=== PATIENT | male | born 1985 | race Caucasian/White ===

== ENCOUNTER 2020-06-08 21:24 | Emergency (ER) | payer BC, MEDICAID, OTHER ==
[2020-06-08] MEDS ORDERED: Ondansetron 4 MG/2 ML SDV IVPUSH ONE (21:41)
[2020-06-08] MEDS ORDERED: Sodium Chloride 0.9% 1,000 ML IV ONE ×2 (21:41→23:05)
[2020-06-08] MEDS ORDERED: Insulin Regular, Human 100 Units/ML 3 ML Vial SUBCUT ONE (21:51)
[2020-06-08 21:56] LABS: CHLORIDE,CL 87 mmol/L (98-107); SODIUM,NA 126 mmol/L (136-145)
[2020-06-08] MEDS ORDERED: Ketorolac 30 MG/ML SDV IVPUSH ONE (21:57)
[2020-06-08] MEDS ORDERED: Insulin Regular, Human 100 Units/ML 3 ML Vial IV ONE (22:57)
--- NOTE | 2020-06-08 23:10 | EDM.PDOC ---
ED HPI GENERAL MEDICAL PROBLEM - General Chief Complaint: Diabetic Complaint Stated Complaint: High BS, R flank Pain, BLE weakness Time Seen by Provider: 06/08/20 21:30 Source of Information: Reports: Patient History Limitations: Reports: No Limitations - History of Present Illness INITIAL COMMENTS - FREE TEXT/NARRATIVE: Pt presents via EMS with elevated glucose Pt is Type 1 diabetic Some mild flank pain Feels shaky No recent illness No fever Some nausea and emesis Onset: Today, Gradual Duration: Getting Worse Location: Reports: Generalized Right Flank Pain Score (Numeric/FACES): 7 - Related Data Allergies Allergy/AdvReac Type Severity Reaction Status Date / Time No Known Allergies Allergy Verified 06/08/20 21:27 Home Meds: Home Meds Insulin Aspart [NovoLOG] See Protocol SUBCUT TIDAC #1 box 11/07/17 [Rx] Insulin Glarg,Human.Rec.Analog [LantUS Solostar] 25 units SUBCUT QAM 02/14/18 [History] Insulin Aspart [NovoLOG] See Protocol SQ WITHMEALSANDBED #2 pen 12/29/19 [Rx] Insulin Glarg,Human.Rec.Analog [Lantus Solostar] 25 unit SUBCUT DAILY #2 pen 12/29/19 [Rx] Past Medical History - Past Health History Medical/Surgical History: Denies Medical/Surgical History HEENT History: Reports: None Cardiovascular History: Reports: None Respiratory History: Reports: Asthma Other Respiratory History: asthma as a child Gastrointestinal History: Reports: Pancreatitis Genitourinary History: Reports: None Musculoskeletal History: Reports: Back Pain, Chronic, Other (See Below) Other Musculoskeletal History: had a sport accident when he was on early Neurological History: Reports: None Psychiatric History: Reports: None Endocrine/Metabolic History: Reports: Diabetes, Type I 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 Hematologic History: Reports: None Immunologic History: Reports: None Oncologic (Cancer) History: Reports: None Dermatologic History: Reports: None - Infectious Disease History Infectious Disease History: Reports: Chicken Pox - Past Surgical History Head Surgeries/Procedures: Reports: None Respiratory Surgical History: Reports: None GI Surgical History: Reports: Appendectomy Endocrine Surgical History: Reports: None Social & Family History - Family History Family Medical History: Noncontributory - Tobacco Use Smoking Status *Q: Light Tobacco Smoker Years of Tobacco use: 20 Packs/Tins Daily: 0.1 Second Hand Smoke Exposure: Yes - Caffeine Use Caffeine Use: Reports: Energy Drinks Other Caffeine Use: multiple drinks daily Caffeine Use Comment: @L soda a week - Recreational Drug Use Recreational Drug Use: No - Living Situation & Occupation Occupation: Employed ED ROS GENERAL - Review of Systems Review Of Systems: See Below Constitutional: Reports: Malaise, Weakness, Fatigue, Decreased Appetite Respiratory: Reports: No Symptoms Cardiovascular: Reports: No Symptoms GI/Abdominal: Reports: Abdominal Pain, Nausea, Vomiting : Reports: Flank Pain Musculoskeletal: Reports: No Symptoms Skin: Reports: No Symptoms Neurological: Reports: No Symptoms ED EXAM GENERAL NO PERIP PULSE - Physical Exam Exam: See Below Exam Limited By: No Limitations General Appearance: Mild Distress Throat/Mouth: Normal Oropharynx Neck: Supple Respiratory/Chest: Lungs Clear Cardiovascular: Regular Rate, Rhythm GI/Abdominal: Soft, Tender Back Exam: CVA Tenderness (L), CVA Tenderness (R) Extremities: No Pedal Edema Neurological: Alert, Oriented, No Motor/Sensory Deficits Psychiatric: Normal Affect, Normal Mood Course - Vital Signs Last Recorded V/S: Last Vital Signs Temp 98.8 F 06/08/20 21:41 Pulse 92 06/08/20 22:55 Resp 20 06/08/20 22:55 BP 120/74 06/08/20 22:55 Pulse Ox 100 06/08/20 22:55 - Orders/Labs/Meds Orders: Active Orders 24 hr Category Date Time Status Sodium Chloride 0.9% [Normal Saline] 1,000 ml Med 06/08/20 23:05 Ordered IV .BOLUS Labs: Laboratory Tests 06/08/20 06/08/20 06/08/20 Range/Units 21:38 21:38 22:10 WBC 12.5 H (4.0-10.2) K/uL RBC 5.32 (4.33-5.41) M/uL Hgb 17.5 H (13.1-16.8) g/dL Hct 46.9 (39.0-49.0) % MCV 88.2 (84.0-98.0) fL MCH 32.9 (28.2-33.3) pg MCHC 37.3 H (31.7-36.0) g/dL RDW 12.5 (11.2-14.1) % Plt Count 219 (150-350) K/uL Neut % (Auto) 71.7 (45.0-80.0) % Lymph % (Auto) 20.9 (10.0-50.0) % Drew % (Auto) 4.8 (2.0-14.0) % Eos % (Auto) 1.0 (0.0-5.0) % Baso % (Auto) 1.6 (0.0-2.0) % Neut # (Auto) 8.99 H (1.40-7.00) K/uL Lymph # (Auto) 2.62 (0.50-3.50) K/uL Drew # (Auto) 0.60 (0.00-1.00) K/uL Eos # (Auto) 0.13 (0.00-0.50) K/uL Baso # (Auto) 0.20 (0.00-0.20) K/uL Sodium 126 L (136-145) mmol/L Potassium 5.3 H (3.5-5.1) mmol/L Chloride 87 L (98-107) mmol/L Carbon Dioxide 10.1 L (21.0-32.0) mmol/L BUN 19 H (7-18) mg/dL Creatinine 0.89 (0.51-1.17) mg/dL Est Cr Clr Drug Dosing 102.25 mL/min Estimated GFR (MDRD) > 60 mL/min Glucose 448 H* (74-106) mg/dL POC Glucose (65-110) mg/dl Calcium 9.8 (8.5-10.1) mg/dL Total Bilirubin 1.4 H (0.2-1.0) mg/dL AST 37 (15-37) U/L ALT 46 (12-78) U/L Alkaline Phosphatase 130 H (46-116) IU/L Total Protein 7.5 (6.4-8.2) g/dL Albumin 4.6 (3.4-5.0) g/dL Specimen Type Urincc Urine Color Light yellow Urine Appearance Clear Urine pH 5.0 (5.0-9.0) Ur Specific [place] 1.020 (1.005-1.030) Urine Protein Negative (NEGATIVE) mg/dL Urine Glucose (UA) 500 H (NEGATIVE) mg/dL Urine Ketones >=160 H (NEGATIVE) mg/dL Urine Occult Blood Negative (NEGATIVE) Urine Nitrite Negative (NEGATIVE) Urine Bilirubin Negative (NEGATIVE) Urine Urobilinogen 0.2 (0.2-1.0) E.U./dL Ur Leukocyte Esterase Negative (NEGATIVE) 06/08/20 Range/Units 22:53 WBC (4.0-10.2) K/uL RBC (4.33-5.41) M/uL Hgb (13.1-16.8) g/dL Hct (39.0-49.0) % MCV (84.0-98.0) fL MCH (28.2-33.3) pg MCHC (31.7-36.0) g/dL RDW (11.2-14.1) % Plt Count (150-350) K/uL Neut % (Auto) (45.0-80.0) % Lymph % (Auto) (10.0-50.0) % Drew % (Auto) (2.0-14.0) % Eos % (Auto) (0.0-5.0) % Baso % (Auto) (0.0-2.0) % Neut # (Auto) (1.40-7.00) K/uL Lymph # (Auto) (0.50-3.50) K/uL Drew # (Auto) (0.00-1.00) K/uL Eos # (Auto) (0.00-0.50) K/uL Baso # (Auto) (0.00-0.20) K/uL Sodium (136-145) mmol/L Potassium (3.5-5.1) mmol/L Chloride (98-107) mmol/L Carbon Dioxide (21.0-32.0) mmol/L BUN (7-18) mg/dL Creatinine (0.51-1.17) mg/dL Est Cr Clr Drug Dosing mL/min Estimated GFR (MDRD) mL/min Glucose (74-106) mg/dL POC Glucose 445 H* (65-110) mg/dl Calcium (8.5-10.1) mg/dL Total Bilirubin (0.2-1.0) mg/dL AST (15-37) U/L ALT (12-78) U/L Alkaline Phosphatase (46-116) IU/L Total Protein (6.4-8.2) g/dL Albumin (3.4-5.0) g/dL Specimen Type Urine Color Urine Appearance Urine pH (5.0-9.0) Ur Specific [place] (1.005-1.030) Urine Protein (NEGATIVE) mg/dL Urine Glucose (UA) (NEGATIVE) mg/dL Urine Ketones (NEGATIVE) mg/dL Urine Occult Blood (NEGATIVE) Urine Nitrite (NEGATIVE) Urine Bilirubin (NEGATIVE) Urine Urobilinogen (0.2-1.0) E.U./dL Ur Leukocyte Esterase (NEGATIVE) Meds: Medications Discontinued Medications Generic Name Dose Route Start Last Admin Trade Name Freq PRN Reason Stop Dose Admin Sodium Chloride 1,000 mls @ 1,000 mls/hr 06/08/20 21:41 06/08/20 21:47 Normal Saline IV 06/08/20 22:40 1,000 mls/hr .BOLUS ONE Administration Insulin Human Regular 18 unit 06/08/20 21:51 06/08/20 21:56 Humulin R SUBCUT 06/08/20 21:52 18 units ONETIME ONE Administration Insulin Human Regular 5 unit 06/08/20 22:57 Humulin R IV 06/08/20 22:58 ONETIME ONE Ketorolac Tromethamine 30 mg 06/08/20 21:57 06/08/20 21:59 Toradol IVPUSH 06/08/20 21:58 30 mg ONETIME ONE Administration Ondansetron HCl 4 mg 06/08/20 21:41 06/08/20 21:47 Zofran IVPUSH 06/08/20 21:42 4 mg ONETIME ONE Administration - Re-Assessments/Exams Free Text/Narrative Re-Assessment/Exam: 06/08/20 23:08 See lab Pt given IVF, IV Zofran Regular insulin SQ and Regular insulin IV in E R Improved symptoms Departure - Departure Time of Disposition: 01:00 Disposition: Home, Self-Care 01 Clinical Impression: Hyperglycemia, Hyperglycemia due to type 1 diabetes mellitus - Discharge Information *PRESCRIPTION DRUG MONITORING PROGRAM REVIEWED*: Not Applicable *COPY OF PRESCRIPTION DRUG MONITORING REPORT IN PATIENT TASHA: Not Applicable Instructions: Hyperglycemia, [id number] Referrals: PCP,None [Primary Care Provider] - Additional Instructions: Follow up in clinic Sepsis Event Note (ED) - Evaluation Sepsis Screening Result: No Definite Risk - Focused Exam Vital Signs: Vital Signs Temp Pulse Resp BP Pulse Ox 06/08/20 22:55 92 20 120/74 100 06/08/20 21:41 98.8 F 120 H 20 131/84 100 - My Orders Last 24 Hours: My Active Orders 06/08/20 23:05 Sodium Chloride 0.9% [Normal Saline] 1,000 ml IV .BOLUS - Assessment/Plan Last 24 Hours: My Active Orders 06/08/20 23:05 Sodium Chloride 0.9% [Normal Saline] 1,000 ml IV .BOLUS
[2020-06-09] MEDS ORDERED: Insulin Regular, Human 100 Units/ML 3 ML Vial SUBCUT ONE (21:48)
== END 2020-06-09 00:15 | disposition home or self-care (01) ==
LOC: LL.ED 21:24
DX: E10.65 Type 1 diabetes mellitus with hyperglycemia (principal); R11.2 Nausea with vomiting, unspecified; F17.210 Nicotine dependence, cigarettes, uncomplicated
CPT/HCPCS: 36415; 80053; 81003; 82962; 85025; 96361; 96374; 96375; 99284; J1815; J1885; J2405; J7030

== ENCOUNTER 2021-11-24 03:59 | Emergency (ER) | payer BC ==
[2021-11-24] MEDS ORDERED: Sodium Chloride 0.9% 1,000 ML IV ONE (04:24)
[2021-11-24] MEDS ORDERED: Sodium Chloride 0.9% 10 ML Syringe FLUSH PRN (04:24)
[2021-11-24] MEDS ORDERED: Ketorolac 30 MG/ML SDV IVPUSH ONE (04:25)
[2021-11-24 04:48] LABS: RESPIRATORY SYNCYTIAL VIR NAA NEGATIVE (NEGATIVE)
[2021-11-24 04:53] LABS: CORONAVIRUS COVID-19 NAA POSITIVE (NEGATIVE)
[2021-11-24 05:13] LABS: HEMOGLOBIN A1C 10.5 % (4.3-5.7)
[2021-11-24 05:38] LABS: CHLORIDE,CL 100 mmol/L (98-107); SODIUM,NA 133 mmol/L (136-145)
[2021-11-24] MEDS ORDERED: 50% Dextrose in Water 50 ML Syringe IVPUSH PRN (05:47)
[2021-11-24] MEDS ORDERED: Insulin Regular, Human 100 Units/ML 3 ML Vial SUBCUT ONE (05:47)
[2021-11-24] MEDS ORDERED: Glucagon,Human Recombinant 1 MG Vial IM PRN (05:47)
[2021-11-24 05:49] LABS: ANION GAP 13.8 meq/L (7-15)
[2021-11-24] MEDS ORDERED: Magnesium Oxide 400 MG Tab PO ONE (06:04)
== END 2021-11-24 06:45 | disposition home or self-care (01) ==
LOC: LL.ED 03:59
DX: U07.1 COVID-19 (principal); E10.65 Type 1 diabetes mellitus with hyperglycemia; E83.42 Hypomagnesemia; Z72.0 Tobacco use
CPT/HCPCS: 0241U; 36415; 80053; 81003; 82947; 83036; 83605; 83690; 83735; 85025; 86140; 96374; 99285-25; A9270-GY; J1815-GY; J1885; J7030